=== PATIENT | male | born 1980 | race African-American/Black ===

== ENCOUNTER 2017-11-07 12:50 | Inpatient (IN) | payer OTHER ==
[~2017-11-07] VITALS: Ht 190.5 cm; Wt 167.0 kg
[2017-11-07] MEDS ORDERED: ALBUTEROL SULFATE 2.5 MG/3 ML NPPB ONE (13:30)
[2017-11-07] MEDS ORDERED: SODIUM CHLORIDE FLUSH 10ML SYR IVF ONE (13:30)
[2017-11-07] MEDS ORDERED: DIPHENHYDRAMINE 50 MG/ML, 1ML IVPush ONE ×2 (13:30→19:00)
[2017-11-07] MEDS ORDERED: HYDROmorphone 2 MG/ML, 1ML IVPush ONE ×3 (13:30→17:30)
[2017-11-07] MEDS ORDERED: HYDROmorphone 2 MG/ML, 1ML ONE ×3 (13:34→17:34)
[2017-11-07] MEDS ORDERED: DIPHENHYDRAMINE 50 MG/ML, 1ML ONE (13:34)
[2017-11-07] MEDS ORDERED: ALBUTEROL SULFATE 2.5 MG/3 ML ONE (13:43)
[2017-11-07] MEDS ORDERED: HYDR-3307 PO (14:01)
[2017-11-07] MEDS ORDERED: ALPR2TAB5 PO (14:01)
[2017-11-07] MEDS ORDERED: VANC1PLA10 IV (14:01)
[2017-11-07] MEDS ORDERED: QUET400T4 PO (14:01)
[2017-11-07] MEDS ORDERED: PANT40TA3 PO (14:01)
[2017-11-07] MEDS ORDERED: HYDR500C3 PO (14:01)
[2017-11-07] MEDS ORDERED: HYDR4TAB PO (14:01)
[2017-11-07] MEDS ORDERED: ENOX80SY5 SQ (14:01)
[2017-11-07] MEDS ORDERED: FOLI-17 PO (14:01)
[2017-11-07] MEDS ORDERED: WARF10TA43 PO (14:01)
[2017-11-07 16:39] LABS: RED BLOOD COUNT 3.01 x10^6/uL (4.38-5.82)
[2017-11-07 16:44] LABS: INTERNATIONAL NORMALIZED RATIO 1.02 (0.93-1.1); PROTHROMBIN TIME 10.5 Seconds (9.6-11.5)
[2017-11-07 16:45] LABS: ALANINE AMINOTRANSFERASE 29 U/L (12-78); ALBUMIN 3.6 g/dL (3.4-5.0); ANION GAP 6 mmol/L (5-15); CALCIUM 8.5 mg/dL (8.5-10.1); CHLORIDE 108 mmol/L (98-107); CREATININE 0.86 mg/dL (0.7-1.3)
[2017-11-07 16:49] LABS: ALKALINE PHOSPHATASE 78 U/L (45-117); BILIRUBIN,TOTAL 0.3 mg/dL (0.2-1.0); TOTAL PROTEIN 7.3 g/dL (6.4-8.2); TROPONIN I < 0.015 ng/mL (0.000-0.045)
[2017-11-07] MEDS ORDERED: OXYcodone/APAP 5/325MG TABLET PO ONE (17:00)
[2017-11-07 17:13] LABS: MD YES; MEAN CORPUSCULAR HEMOGLOBIN 25.4 pg (27.5-34.5); MEAN CORPUSCULAR VOLUME 85.6 fL (81-97); MEAN PLATELET VOLUME 9.4 fL (7.4-10.4); PLATELET COUNT 210 x10^3/uL (130-400); RED BLOOD COUNT 3.01 x10^6/uL (4.38-5.82); RED CELL DISTRIBUTION WIDTH 19.5 % (9.4-14.8)
[2017-11-07 17:14] LABS: MEAN CORPUSCULAR HGB CONC 29.7 g/dL (33.2-36.2)
[2017-11-07] MEDS ORDERED: OXYcodone/APAP 5/325MG TABLET ONE (17:15)
[2017-11-07 17:17] LABS: <PLATELET ESTIMATE> ADEQUATE; <PLT MORPHOLOGY> NORMAL PLT MORPH; EOS#(MANUAL) 0.05 x10^3/uL (0.0-0.4); EOS% (MANUAL) 1 % (1-7); LYMPH#(MANUAL) 1.25 x10^3/uL (1-3.4); LYMPHS% (MANUAL) 24 % (22-44); MONOS#(MANUAL) 0.36 x10^3/uL (0.3-2.7); MONOS% (MANUAL) 7 % (2-9); SEG#(MANUAL) 3.54 x10^3/uL (1.8-6.8); SEGS% (MANUAL) 68 % (42-75)
[2017-11-07 17:18] LABS: ANISOCYTOSIS 1+; POLYCHROMASIA 1+
[2017-11-07 17:30] LABS: ABSOLUTE RETICS # 0.089 x10^6/uL (0.5-1.5); RETICULOCYTE COUNT % 2.93 % (0.5-1.5)
[2017-11-07] MEDS ORDERED: OMNIPAQUE 350 MG/ML, 150 ML BOTTLE ONE (18:00)
[2017-11-07] MEDS ORDERED: PROMETHAZINE 25MG TABLET PO PRN (19:00)
[2017-11-07] MEDS ORDERED: ACETAMINOPHEN 325 MG TABLET PO ONE (19:00)
[2017-11-07] MEDS ORDERED: ACETAMINOPHEN 325 MG TABLET PO PRN (19:00)
[2017-11-07] MEDS ORDERED: LABETALOL 5MG/ML, 20ML IVPush PRN (19:00)
[2017-11-07] MEDS ORDERED: DIPHENHYDRAMINE 25 MG CAPSULE PO PRN (19:00)
[2017-11-07] MEDS ORDERED: NITROGLYCERIN 0.4 MG BOTTLE (25 TABS) SL PRN (19:00)
[2017-11-07] MEDS ORDERED: ALPRazolam 1MG TABLET PO PRN (19:30)
[2017-11-07] MEDS ORDERED: HYDROcodone/APAP 10/325 MG TABLET PO PRN (19:30)
[2017-11-07] MEDS ORDERED: SOD CHLORIDE IV SCH (21:00)
[2017-11-07] MEDS ORDERED: VANCOMYCIN 1.25 MG in SODIUM CHLORIDE 0.9% 250 ML IV SCH (21:00)
[2017-11-07] MEDS: HYDROXYUREA 500 MG CAPSULE PO SCH (21:00)
[2017-11-07] MEDS ORDERED: VANCOMYCIN IV SCH (21:00)
[2017-11-07] MEDS ORDERED: [UNRECOGNIZED DRUG - OTHER] IV SCH (21:00)
[2017-11-07] MEDS: QUETIAPINE 200 MG TABLET PO SCH (21:00)
[2017-11-07] MEDS: HYDROmorphone 2 MG/ML, 1ML IVPush PRN (21:12)
[2017-11-07 21:21] VITALS: BP 146/104
[2017-11-07 21:50] VITALS: BP 124/84
[2017-11-07 22:10] VITALS: BP 130/94
[2017-11-07 23:17] VITALS: BP 121/70
[2017-11-07 23:58] VITALS: BP 128/79
[2017-11-08] MEDS: HYDROmorphone 2 MG/ML, 1ML IVPush PRN ×7 (00:14→19:02)
[2017-11-08 00:17] VITALS: BP 130/86
[2017-11-08 00:37] VITALS: BP 136/76
[2017-11-08 01:50] VITALS: BP 106/79
[2017-11-08 02:00] VITALS: BP 106/79
[2017-11-08] MEDS: VANCOMYCIN 1,250 MG in SODIUM CHLORIDE 0.9% 250 ML IV SCH ×2 (02:29→10:11)
[2017-11-08] MEDS: SODIUM CHLORIDE 0.9% 1,000 ML IV SCH ×2 (02:29→16:04)
[2017-11-08 03:03] LABS: TROPONIN I < 0.015 ng/mL (0.000-0.045)
[2017-11-08 07:11] LABS: ANION GAP 10 mmol/L (5-15); CALCIUM 8.2 mg/dL (8.5-10.1); CHLORIDE 105 mmol/L (98-107); CREATININE 0.88 mg/dL (0.7-1.3)
[2017-11-08 08:14] VITALS: BP 133/85
[2017-11-08] MEDS: HYDROXYUREA 500 MG CAPSULE PO SCH ×2 (09:00→14:34)
[2017-11-08] MEDS ORDERED: FOLIC ACID 1 MG TABLET PO SCH (09:00)
[2017-11-08] MEDS: QUETIAPINE 200 MG TABLET PO SCH (10:07)
[2017-11-08 10:59] LABS: ALANINE AMINOTRANSFERASE 25 U/L (12-78); ALBUMIN 3.4 g/dL (3.4-5.0); ANION GAP 10 mmol/L (5-15); CALCIUM 8.3 mg/dL (8.5-10.1); CHLORIDE 106 mmol/L (98-107); CREATININE 0.85 mg/dL (0.7-1.3)
[2017-11-08 11:04] LABS: ALKALINE PHOSPHATASE 73 U/L (45-117); BILIRUBIN,TOTAL 0.6 mg/dL (0.2-1.0); TOTAL PROTEIN 7.2 g/dL (6.4-8.2); TROPONIN I < 0.015 ng/mL (0.000-0.045)
[2017-11-08 11:07] LABS: MEAN CORPUSCULAR HEMOGLOBIN 27.3 pg (27.5-34.5); MEAN CORPUSCULAR VOLUME 85.1 fL (81-97); RED BLOOD COUNT 3.39 x10^6/uL (4.38-5.82); RED CELL DISTRIBUTION WIDTH 19.4 % (9.4-14.8)
[2017-11-08 11:09] LABS: MD YES; MEAN PLATELET VOLUME 8.8 fL (7.4-10.4); PLATELET COUNT 302 x10^3/uL (130-400)
[2017-11-08 11:11] LABS: EOS#(MANUAL) 0.16 x10^3/uL (0.0-0.4); EOS% (MANUAL) 3 % (1-7); LYMPH#(MANUAL) 0.74 x10^3/uL (1-3.4); LYMPHS% (MANUAL) 14 % (22-44); MONOS#(MANUAL) 0.27 x10^3/uL (0.3-2.7); MONOS% (MANUAL) 5 % (2-9); SEG#(MANUAL) 4.13 x10^3/uL (1.8-6.8); SEGS% (MANUAL) 78 % (42-75)
[2017-11-08 11:12] LABS: <PLATELET ESTIMATE> ADEQUATE; <PLT MORPHOLOGY> NORMAL PLT MORPH; ANISOCYTOSIS 1+; POLYCHROMASIA 1+
[2017-11-08 11:14] LABS: OVALOCYTES 1+
[2017-11-08 14:40] VITALS: BP 128/84
[2017-11-08] MEDS ORDERED: QUETIAPINE 100MG TABLET PO SCH (16:00)
== END 2017-11-08 20:42 | disposition left against medical advice (07) | DRG 378 ==
LOC: ED 18:34 → EDIP 18:35 → 5SO 20:19
PROVIDERS: ADMIT Internal Medicine; ATTEND Internal Medicine
PROC: 30233N1 Transfusion of Nonautologous Red Blood Cells into Peripheral Vein, Percutaneous Approach (ICD-10-PCS; principal; 2017-11-07)
PROC: 02HV33Z Insertion of Infusion Device into Superior Vena Cava, Percutaneous Approach (ICD-10-PCS; 2017-11-07)
DX: K92.2 Gastrointestinal hemorrhage, unspecified (principal); D68.69 Other thrombophilia; I69.351 Hemiplegia and hemiparesis following cerebral infarction affecting right dominant side; D57.1 Sickle-cell disease without crisis; R07.9 Chest pain, unspecified; N18.9 Chronic kidney disease, unspecified; F31.9 Bipolar disorder, unspecified; I25.10 Atherosclerotic heart disease of native coronary artery without angina pectoris; Z53.21 Procedure and treatment not carried out due to patient leaving prior to being seen by health care provider; I25.2 Old myocardial infarction; Z95.5 Presence of coronary angioplasty implant and graft; Z90.81 Acquired absence of spleen; Z87.11 Personal history of peptic ulcer disease; Z86.718 Personal history of other venous thrombosis and embolism; Z86.711 Personal history of pulmonary embolism; Z82.49 Family history of ischemic heart disease and other diseases of the circulatory system; Z79.82 Long term (current) use of aspirin; Z79.02 Long term (current) use of antithrombotics/antiplatelets; Z79.2 Long term (current) use of antibiotics; Z90.49 Acquired absence of other specified parts of digestive tract
CPT/HCPCS: 36415; 36556; 99285; J7613; 71045; 71275; 80048; 80053; 83615; 83735; 83880; 84484; 85025; 85045; 85610; 86850; 86900; 86923; 93005; 94640; 96374; 96375; 96376; J1170; J3370; Q9967; J1200; J7030; J7050; P9016